=== PATIENT | female | born 1945 | race Caucasian/White ===

== ENCOUNTER 2016-08-25 09:17 | Day surgery (SDC) | payer OTHER ==
[2016-08-25] MEDS ORDERED: ANCEF VIAL 1 GM ONE (09:38)
[2016-08-25] MEDS ORDERED: NS 100 ML IV 100 ML IV ONE (09:38)
[2016-08-25] MEDS ORDERED: XYLOCAINE-MPF 1% ONE (09:38)
[2016-08-25] MEDS ORDERED: NS 1000 ML 1,000 ML ONE (09:54)
[2016-08-25] MEDS: D5 LR 1000 ML 1,000 ML IV ONE ×2 (10:00→10:05)
[2016-08-25] MEDS ORDERED: NS IRRIGATION 1000 ML 1,000 ML with BACITRACIN VIAL 50,000 UNT IR ONE ×2 (10:15)
[2016-08-25 11:14] VITALS: BP 142/69
== END 2016-08-25 11:01 | disposition home or self-care (01) ==
LOC: SURG1 09:17
PROVIDERS: ATTEND Specialist
PROC: 01N50ZZ Release Median Nerve, Open Approach (ICD-10-PCS; principal; 2016-08-25 11:45)
DX: G56.02 Carpal tunnel syndrome, left upper limb (principal)
CPT/HCPCS: A4222; J0690; J7120